=== PATIENT | female | born 1995 | race Caucasian/White ===

== ENCOUNTER 2024-10-28 06:15 | Day surgery (SDC) | payer BC ==
[~2024-10-28 06:15] MED LIST: Dexamethasone 4 MG/ML 5 ML MDV ONE; Ibuprofen 800 MG Tab PO PRN; Lidocaine 1% 5 ML VIAL ONE; Midazolam 1 MG/ML 2 ML SDV ONE; Ondansetron 4 MG/2 ML SDV ONE; Promethazine 25 MG/ML SDV IM PRN; Propofol 200 MG/20 ML SDV ONE; Sodium Chloride 0.9% 10 ML Syringe FLUSH PRN; Sodium Chloride 0.9% 2.5 ML Syringe FLUSH PRN; Sodium Chloride 0.9% 20 ML SDV IV PRN; ceFAZolin 2 GM in Sodium Chloride 0.9% 50 ML IV ONE; fentaNYL 100 MCG/2 ML SDV ONE
[2024-10-28] MEDS ORDERED: Bupivacaine 0.25% 30 ML SDV ONE (06:29)
[2024-10-28] MEDS ORDERED: Iodine/Potassium Iodide 5% Solution 14 ML Bottle ONE ×2 (06:29→07:27)
[2024-10-28] MEDS ORDERED: Bupivacaine 0.5%/EPINEPHrine 1:200,000 30 ML SDV ONE (06:29)
[2024-10-28] MEDS ORDERED: Ferric Subsulfate Topical Soln 8 GM (8 ML) Bottle ONE (06:29)
[2024-10-28] MEDS: Scopalamine 1mg/3day Transdermal Patch TOP ONE (06:44)
[2024-10-28] MEDS: Lactated Ringers 1,000 ML IV SCH (06:46)
[2024-10-28] MEDS ORDERED: propofoL 500 MG/50 ML 0 ML ONE (06:54)
[2024-10-28] MEDS ORDERED: Propofol 200 MG/20 ML SDV ONE (06:55)
[2024-10-28] MEDS ORDERED: fentaNYL 100 MCG/2 ML SDV ONE (06:55)
[2024-10-28] MEDS ORDERED: ceFAZolin 2 GM Vial ONE (07:16)
[2024-10-28] MEDS ORDERED: Ketorolac 30 MG/ML SDV ONE (07:51)
[2024-10-28] MEDS ORDERED: Morphine 2 MG/ML SYRINGE IVPUSH PRN (07:59)
[2024-10-28] MEDS ORDERED: Albuterol 0.083% 2.5 MG/3 ML Neb Soln NEB PRN (07:59)
[2024-10-28] MEDS ORDERED: Ondansetron 4 MG/2 ML SDV IVPUSH PRN (07:59)
[2024-10-28] MEDS ORDERED: Phenylephrine HCl In 0.9% NaCl 1 MG/10 ML Syringe IVPUSH PRN (07:59)
[2024-10-28] MEDS ORDERED: Naloxone 0.4 MG/ML SDV IVPUSH PRN (07:59)
[2024-10-28] MEDS ORDERED: HYDROmorphone 1 MG/ML Syringe IVPUSH PRN (07:59)
[2024-10-28] MEDS ORDERED: Metoclopramide 10 MG/2 ML SDV IVPUSH PRN (07:59)
[2024-10-28] MEDS: fentaNYL 50 MCG/ML SDV IVPUSH PRN (08:23)
[2024-10-28] MEDS: Ondansetron 4 MG/2 ML SDV IVPUSH PRN (09:10)
[2024-10-28] MEDS ORDERED: Metoclopramide 10 MG/2 ML SDV ONE (09:32)
[2024-10-28] MEDS ORDERED: Famotidine 20 MG/2 ML SDV ONE (09:35)
== END 2024-10-28 10:05 | disposition home or self-care (01) ==
LOC: MW.SDS 06:15
PROVIDERS: ATTEND Obstetrics & Gynecology
DX: N72 Inflammatory disease of cervix uteri (principal); N87.1 Moderate cervical dysplasia
CPT/HCPCS: 57522; 81025; A9270; J0131; J0665; J0690; J1100; J1885; J2003; J2250; J2405; J2704; J2765; J3010; J7120; 00940; 57460; J3490